=== PATIENT | female | born 1995 ===

== ENCOUNTER 2021-11-25 12:40 | Observation (INO) | payer MEDICAID ==
[2021-11-25] MEDS ORDERED: PREN-96 PO (14:10)
== END 2021-11-25 15:41 | disposition home or self-care (01) ==
LOC: LDRP 12:40
PROVIDERS: ADMIT Obstetrics & Gynecology; ATTEND Obstetrics & Gynecology
DX: O62.9 Abnormality of forces of labor, unspecified (principal); Z3A.39 39 weeks gestation of pregnancy
CPT/HCPCS: 59025; 76818; 81002; 94760; G0378

== ENCOUNTER 2021-11-26 07:52 | Inpatient (IN) | payer MEDICAID ==
[~2021-11-26] VITALS: Ht 160 cm; Wt 59.9 kg
[~2021-11-26 07:52] MED LIST: PREN-96 PO
[2021-11-26] MEDS ORDERED: PROMETHAZINE HCL 25 MG/ML 1ML IV PRN (10:00)
[2021-11-26] MEDS ORDERED: DERMOPLAST 60ML BOTTLE TOP PRN (10:00)
[2021-11-26] MEDS ORDERED: BUTORPHANOL TARTRATE 2 MG/1 ML VIAL IV PRN ×2 (10:00)
[2021-11-26] MEDS ORDERED: PENICILLIN G POT 5MIL/D5 50ML 50 ML IV ONE (10:00)
[2021-11-26] MEDS ORDERED: PHISODERM TOP SOLN 240ML BTL TOP PRN (10:00)
[2021-11-26] MEDS ORDERED: LACT. RINGERS/OXYTOCIN 20UNITS 500 ML IV ONE ×2 (10:00→10:30)
[2021-11-26] MEDS ORDERED: WITCH HAZEL-GLYCERIN PAD TOP PRN (10:00)
[2021-11-26] MEDS ORDERED: LIDOCAINE 2%HCL (LOCAL ANESTH.) INJ 10ml MDV IJ PRN (10:00)
[2021-11-26 10:27] LABS: Urine WBC None Seen /hpf (0 - 5)
[2021-11-26 10:34] LABS: Hematocrit 39.5 % (36.0-46.0); Hemoglobin 13.8 g/dL (12.2-16.2); Mean Corpuscular Volume 88.6 fL (80.0-100.0); Red Blood Cells 4.46 10^6/uL (4.0-5.20); Red Cell Distribution Width 14.6 % (11.8-14.3)
[2021-11-26 10:37] LABS: Urine Bacteria FEW /hpf (None Seen); Urine Blood Negative /uL (Negative); Urine Specific Gravity 1.003 (1.001-1.035)
[2021-11-26 10:46] LABS: Basophils % (manual) 0 (0.0-2.0); Blast Cells 0; Promyelocytes % 0; Reactive Lymphocytes 0
[2021-11-26 10:48] LABS: Alcohol, Urine < 3.0 mg/dL (0-10); Amphetamine Screen, Urine NEGATIVE (NEGATIVE); Barbiturate Scree,Urine NEGATIVE (NEGATIVE); Benzodiazephine Screen, Urine NEGATIVE (NEGATIVE); Cannabinoid Screen, Urine NEGATIVE (NEGATIVE); Cocaine Screen, Urine NEGATIVE (NEGATIVE); Opiate Scree,Urine NEGATIVE (NEGATIVE); Phencyclidine Screen, Urine NEGATIVE (NEGATIVE)
[2021-11-26 10:59] LABS: Albumin 2.6 g/dL (3.4-5.0); Potassium 3.8 mmol/L (3.5-5.1)
[2021-11-26 11:00] LABS: INR 0.92 (0.9-1.15); Partial Thromboplastin Time 26.8 sec (23.6-33.0)
[2021-11-26 11:13] LABS: BUN/Creatinine Ratio 11.1; Bilirubin, Total 0.9 mg/dL (0.2-1.0); Total Protein 7.1 g/dL (6.4-8.2)
[2021-11-26 11:19] LABS: Band Neutrophils % (manual) 5; Eosinophils % (manual) 1 (0-7); Lymphocytes % (manual) 13 (10.0-50.0); Metamyelocytes % 1; Monocytes % (manual) 5 (0-12); Myelocytes % 1
[2021-11-26] MEDS: LACTATED RINGER'S 1,000 ML IV SCH ×2 (12:11→12:18)
[2021-11-26] MEDS ORDERED: NALOXONE HCL 0.4 MG/ML VIAL IV ONE (14:00)
[2021-11-26] MEDS ORDERED: LACTATED RINGER'S 1,000 ML IV ONE (14:00)
[2021-11-26] MEDS ORDERED: ROPIVACAINE HCL 200 ML EPI SCH (14:00)
[2021-11-26] MEDS ORDERED: fentaNYL CITRATE 100 MCG/2 ML VL EPI ONE (14:00)
[2021-11-26] MEDS ORDERED: ePHEDrine SULFATE 50 MG/ML AMP IV ONE (14:00)
[2021-11-26] MEDS ORDERED: PENICILLIN G POTASSIUM 2,500,000 UNITS in D5W 5% 50 ML IV SCH (14:00)
[2021-11-26] MEDS ORDERED: TERBUTALINE SULFATE 1 MG/ML 1ML VIAL SC ONE ×2 (17:20→17:21)
[2021-11-26] MEDS ORDERED: SODIUM CHLORIDE 0.9% 300 ML IUPC ONE (18:15)
[2021-11-26] MEDS ORDERED: SODIUM CHLORIDE 0.9% 1,000 ML IUPC SCH (18:15)
[2021-11-26] MEDS ORDERED: LIDOCAINE 2% (LOCAL ANESTH.) PF 5ml SDV ONE (19:55)
[2021-11-26] MEDS ORDERED: ceFAZolin 2 GM in D5W 5% 100 ML IV ONE ×4 (20:00)
[2021-11-26] MEDS ORDERED: ceFAZolin 1GM/50ML 100 ML IV ONE (20:03)
[2021-11-26] MEDS ORDERED: MORPHINE SULF PF 5 MG/10 ML VIAL ONE (20:05)
[2021-11-26] MEDS ORDERED: TRANEXAMIC ACID 1,000 MG in SODIUM CHL 0.9% 100 ML IV ONE (20:15)
[2021-11-26] MEDS ORDERED: KETAMINE HCL 10 ML ONE (20:22)
[2021-11-26] MEDS ORDERED: OXYTOCIN 10UNIT/ML 1ML VIAL ONE (21:30)
[2021-11-26] MEDS ORDERED: fentaNYL CITRATE 100 MCG/2 ML VL IV PRN (21:30)
[2021-11-26] MEDS ORDERED: ONDANSETRON HCL 4 MG/2 ML VIAL IV PRN ×3 (21:30→21:45)
[2021-11-26] MEDS ORDERED: METOCLOPRAMIDE HCL 5MG/ml INJ 2ml VIAL IV PRN (21:30)
[2021-11-26] MEDS ORDERED: ePHEDrine SULFATE 50 MG/ML AMP IV PRN ×2 (21:30→21:45)
[2021-11-26] MEDS ORDERED: HYDROmorphone HCL 2 MG/ML VL/or syr ONE (21:31)
[2021-11-26] MEDS ORDERED: NALOXONE HCL 0.4 MG/ML VIAL IV PRN (21:45)
[2021-11-26] MEDS ORDERED: HYDROmorphone HCL 2 MG/ML VL/or syr IV PRN (21:45)
[2021-11-26] MEDS ORDERED: diphenhdrAMINE HCL 50 MG/1 ML VL IV PRN (21:45)
[2021-11-26] MEDS ORDERED: KETOROLAC TROMETH 30 MG/ML 1ML VIAL IV PRN (21:45)
[2021-11-26] MEDS ORDERED: GUM (CHEWING) 1 GUM CHEW CHEW ONE (21:45)
[2021-11-26 21:48] VITALS: BP 102/62
[2021-11-26 22:00] VITALS: BP 105/60
[2021-11-26 23:00] VITALS: BP 97/59
[2021-11-27] VITALS (30 sets, daily range): BP systolic 85–104; BP diastolic 42–60
[2021-11-27] MEDS: DOCUSATE SOD 100 MG CAP PO SCH ×2 (00:15→22:28)
[2021-11-27] MEDS ORDERED: HYDROcodone-ACET 5/325MG TAB PO PRN (06:00)
[2021-11-27 07:00] LABS: Basophils # (auto) 0 10 ^3/uL (0-0.2); Basophils % (auto) 0.4 % (0.0-2.0); Eosinophils # (auto) 0 10 ^3/uL (0-0.8); Eosinophils % (auto) 0.4 % (0.0-7.0); Hematocrit 34.5 % (36.0-46.0); Hemoglobin 12.1 g/dL (12.2-16.2); Lymphocytes # (auto) 1.5 10 ^3/uL (0.4-5.4); Lymphocytes % (auto) 15.4 % (10.0-50.0); Mean Corpuscular Hemoglobin 31.2 pg (28.0-32.0); Mean Corpuscular Volume 89.1 fL (80.0-100.0); Monocytes # (auto) 0.7 10 ^3/uL (0-1.3); Monocytes % (auto) 7.3 % (0.0-12.0); Neutrophils # (auto) 7.5 10 ^3/uL (1.6-8.6); Neutrophils % (auto) 76.5 % (37.0-80.0); Red Blood Cells 3.87 10^6/uL (4.0-5.20); Red Cell Distribution Width 14.8 % (11.8-14.3); White Blood Cell 9.8 10^3/uL (4.4-10.8)
[2021-11-27] MEDS: SIMETHICONE 80 MG CHEWABLE TABLET PO PRN (07:05)
[2021-11-27 07:06] LABS: RPR Non Reactive (Non Reactive)
[2021-11-27] MEDS: HYDROcodone-ACET 5/325MG TAB PO PRN (09:00)
[2021-11-27] MEDS ORDERED: HYDR-4902 PO (09:48)
[2021-11-27] MEDS ORDERED: DOCU100C10 PO (09:48)
[2021-11-27] MEDS ORDERED: IBU600T PO (09:48)
[2021-11-27] MEDS ORDERED: LACTATED RINGER'S 1,000 ML IV ONE (12:20)
[2021-11-27] MEDS: IBUPROFEN 600 MG TAB PO SCH ×2 (14:17→20:12)
[2021-11-27] MEDS ORDERED: IBUPROFEN 600 MG TAB PO SCH (18:00)
[2021-11-28 03:00] VITALS: BP 94/60
[2021-11-28] MEDS ORDERED: MEASLES, MUMPS & RUBELLA VAC(MMRII) 0.5ML SC ONE (05:45)
[2021-11-28] MEDS ORDERED: TETANUS-DIPTH-ACEL PERTUSSIS 0.5ML SYR Tdap IM ONE (05:45)
[2021-11-28] MEDS: SIMETHICONE 80 MG CHEWABLE TABLET PO PRN (07:05)
[2021-11-28] MEDS: IBUPROFEN 600 MG TAB PO SCH ×4 (07:06→19:18)
[2021-11-28 11:00] VITALS: BP 104/69
[2021-11-28 15:00] VITALS: BP 103/57
[2021-11-28] MEDS: HYDROcodone-ACET 5/325MG TAB PO PRN ×2 (16:04→22:41)
[2021-11-28 19:00] VITALS: BP 98/65
[2021-11-28] MEDS ORDERED: BISACODYL 10 MG RECT SUPP PR ONE (22:15)
[2021-11-28] MEDS: DOCUSATE SOD 100 MG CAP PO SCH (22:25)
[2021-11-28 23:00] VITALS: BP 109/74
[2021-11-29 03:00] VITALS: BP 98/58
[2021-11-29 07:30] VITALS: BP 92/55
[2021-11-29] MEDS: IBUPROFEN 600 MG TAB PO SCH ×2 (07:36)
[2021-11-29] MEDS ORDERED: MEASLES, MUMPS & RUBELLA VAC(MMRII) 0.5ML SC ONE (10:45)
[2021-11-29 11:30] VITALS: BP 93/66
[2021-11-29 12:40] VITALS: BP 93/66
== END 2021-11-29 12:40 | disposition home or self-care (01) | DRG 540 ==
LOC: LDRP 09:13 → OBSVTOIN 09:45 → LDRP 09:46
PROVIDERS: ADMIT Obstetrics & Gynecology; ATTEND Obstetrics & Gynecology
PROC: 10D00Z1 Extraction of Products of Conception, Low, Open Approach (ICD-10-PCS; principal; 2021-11-26 20:10)
DX: O76 Abnormality in fetal heart rate and rhythm complicating labor and delivery (principal); O41.00X0 Oligohydramnios, unspecified trimester, not applicable or unspecified; O77.0 Labor and delivery complicated by meconium in amniotic fluid; Z37.0 Single live birth; Z3A.40 40 weeks gestation of pregnancy; Z20.822 Contact with and (suspected) exposure to COVID-19
CPT/HCPCS: 36415; 59025; 62282; 76818; 80053; 80307; 81001; 81002; 85007; 85025; 85027; 85610; 85730; 86592; 86850; 86900; 86901; 90715; 94760; 94762; 96360; 96361; 96366; 96372; G0378; J0690; J1885; J2001; J2590; J7060